=== PATIENT | male | born 1960 | race Caucasian/White ===

== ENCOUNTER 2016-10-14 17:12 | Inpatient (IN) | payer OTHER ==
[2016-10-14] MEDS ORDERED: NS 1,000 ML IV ONE ×2 (17:46→19:10)
[2016-10-14] MEDS ORDERED: ONDANSETRON 4 MG/2 ML VIAL IVP ONE ×2 (17:47→21:03)
--- NOTE | 2016-10-14 17:55 | CPEKG ---
Heart Rate: 72 RR Interval: 833 P-R Interval: 152 QRSD Interval: 104 QT Interval: 396 QTC Interval: 434 P [place]: 62 QRS [place]: 76 T Wave [place]: 69 EKG Severity - ABNORMAL ECG - EKG Impression: SINUS RHYTHM EKG Impression: PROBABLE LEFT VENTRICULAR HYPERTROPHY EKG Impression: ST ELEVATION SUGGESTS PERICARDITIS EKG Impression: With artifact due to rigors Electronically Signed By: Hao Manzanares 14-Oct-2016 20:14:57
[2016-10-14] MEDS ORDERED: LORazepam 2 MG/ML INJ IVP ONE ×2 (17:57→18:56)
[2016-10-14 17:58] LABS: % IMMATURE GRANULYOCYTES 0.6 % (0.0-1.1); ABSOLUTE IMMATURE GRANULOCYTES 0.13 10^3/uL (0.00-0.10); ADD DIFF? NO; ADD MORPH? NO; ADD SCAN? NO; ATYPICAL LYMPHOCYTE FLAG 0 (0-99); FRAGMENT RBC FLAG 0 (0-99); HEMATOCRIT 54.7 % (40.0-51.0); LEFT SHIFT FLG 0 (0-99); LIPEMIA HEMOLYSIS FLAG 90 (0-99); MEAN CELL HEMOGLOBIN 33.7 pg (27.9-34.1); MEAN CELL HEMOGLOBIN CONCENTR. 36.6 g/dL (32.4-36.7); MEAN CELL VOLUME 92.1 fL (81.5-99.8); PLATELET CLUMPS FLAG 0 (0-99); PLATELET COUNT 384 10^3/uL (150-400); RED BLOOD CELL COUNT 5.94 10^6/uL (4.40-6.38); RED CELL DISTRIBUTION WIDTH 12.1 % (11.5-15.2)
[2016-10-14] MEDS ORDERED: KETOROLAC 30 MG/1 ML SDV IVP ONE (17:58)
[2016-10-14 18:11] LABS: ALANINE AMINOTRANSFERASE 32 IU/L (21-72); ALBUMIN 5.4 g/dL (3.5-5.0); ALKALINE PHOSPHATASE 105 IU/L (38-126); ANION GAP 22 mEq/L (8-16); ASPARTATE AMINOTRANSFERASE 21 IU/L (17-59); CARBON DIOXIDE 22 mEq/l (22-31); CHLORIDE 96 mEq/L (97-110); CREATININE 0.8 mg/dL (0.7-1.3); GLOMERULAR FILTRATION RATE > 60; GLUCOSE 129 mg/dL (70-100); POTASSIUM 4.1 mEq/L (3.5-5.2); SODIUM 140 mEq/L (134-144); TOTAL PROTEIN 9.3 g/dL (6.3-8.2)
[2016-10-14 18:15] LABS: HEMATOCRIT 54.7 % (40.0-51.0)
[2016-10-14] MEDS ORDERED: METOCLOPRAMIDE 10 MG/2 ML VIAL IVP ONE (18:29)
--- NOTE | 2016-10-14 18:40 | EDPHY ---
H & P Stated Complaint: yesterday am awoke with N/V- today nausea/not feeling well / redness/SOB/wea Time Seen by Provider: 10/14/16 17:35 HPI/ROS: This patient complains of nausea and vomiting that started yesterday-Thursday. He reports mostly dry heaving he has associated shortness of breath. When the nurse asked him about coughing he stated that he did have dry cough since Thursday. He reported no cough when I asked him but he is observed to be coughing here intermittently. His reports that "he does not think well when he feels badly." He also reports fevers and chills became more prominent today shortly prior to arrival. He also reports frequent hiccups over the past 2 days. He has associated epigastric discomfort a states is mild seems to be related to coughing and dry heaving. The pain it is achy in nature and nonradiating. He notes no change in the discomfort related to position and notes no other exacerbating factors. He has had minimal p. o. intake but is tolerating fluids over the past 2 days intermittently between dry heaves. ROS: Constitutional: Fevers and chills. Mild fatigue. Integumentary: Prominent skin flushing to the thorax over the past 24 hours. "Usually he is not that red," states his . HEENT: No URI symptoms. No other complaints Pulmonary: He reports mild wheezing associated with this cough. GI: As per HPI. No hematemesis. He reports normal bowel 2-3 loose bowel movements yesterday and 1 loose bowel movement today. No bloody stools. No tarry stools. : No testicle pain, dysuria or other urinary symptoms. Endocrine: No polyuria or polydipsia. Neuro: No focal numbness tingling or weakness or headache this Musculoskeletal: Currently no back pain. He states his Lyrica significantly helps his back pain Complete review of symptoms otherwise negative Source: Patient Exam Limitations: No limitations - Personal History Current Tetanus Diphtheria and Acellular Pertussis (TDAP): Yes - Medical/Surgical History Other PMH: knee surgery / hernia repair. Chronic back pain - Family History Significant Family History: No pertinent family hx - Social History Smoking Status: Never smoked Alcohol Use: None Drug Use: Marijuana (He reports occasional marijuana use.) Additional Social History: Denies IV drug use - Physical Exam Exam: Vital signs normal except for low-grade fever on arrival General Appearance: Alert, uncomfortable due to rigors Eyes: Pupils equal and round no pallor or injection. ENT, Mouth: Mucous membranes dry. Respiratory: There are no retractions, lungs are clear to auscultation. Cardiovascular: Regular rate and rhythm. No murmur gallop or rub appreciated. He has no discomfort when leaning forward or lying flat. Gastrointestinal: No normoactive to hypoactive, soft, mild epigastric tenderness with no guarding or rebound. No organomegaly is appreciated. : No testicular tenderness Back: No CVA tenderness. No midline tenderness. Neurological: Patient is alert. He initially has difficulty answering questions /mild confusion giving GCS of 14 initially on recheck after fluids and Toradol his GCS improved to 15 no focal deficits. Skin: Warm with flushed erythematous slightly warm skin to his entire torso. This blanches easily. No petechia or purpura. Musculoskeletal: Neck is supple nontender. Extremities are symmetrical, full range of motion. Psychiatric: Patient is apprehensive initially. DIFFERENTIAL DIAGNOSIS: After history and physical exam differential diagnosis was considered for pneumonia, pericarditis, endocarditis, hepatitis, hepatic abscess, mi, diverticulitis, epidural abscess unlikely given lack of significant back pain, viral bronchitis, bacterial bronchitis, bacteremia Constitutional: Initial Vital Signs Temperature (C) 37.7 C 10/14/16 17:26 Heart Rate 75 10/14/16 17:26 Respiratory Rate 18 10/14/16 17:26 Blood Pressure 145/86 H 10/14/16 17:26 O2 Sat (%) 96 10/14/16 17:26 O2 Delivery Mode Room Air Allergies/Adverse Reactions: esomeprazole magnesium [From Nexium] Allergy (Intermediate, Verified 06/16/13 13 :05) pantoprazole sodium [From Protonix] Allergy (Intermediate, Verified 06/16/13 13: 05) Home Medications: Medication Instructions Recorded TRAZODONE HCL 03/21/09 Neurontin 06/16/13 Baclofen 10/14/16 SIMVASTATIN 10/14/16 Medical Decision Making - Diagnostics EKG Interpretation: 12 lead EKG performed shortly after arrival at 5:53 p.m. indication nausea, fatigue-rule out coronary syndrome pericarditis or other Sinus rhythm at 72 Intervals: Normal throughout [place]: Normal throughout The patient has diffuse J-point elevation inferiorly and anterolaterally suggestive of pericarditis. Overall assessment sinus rhythm with possible pericarditis, however I feel this EKG is limited because the patient had rigors when there is some artifact. 2nd EKG performed at 8:01 p.m. indication rigors resolved EKG without artifact sought Sinus rhythm at 88 Intervals: Normal throughout [place]: Normal throughout ST segments: Normal throughout Overall assessment normal EKG Imaging Results: Imaging Impressions Chest X-Ray 10/14/16 18:14 Impression: Mild perihilar bronchitis, with no focal infiltrate identified. Findings were discussed with LISE GUERIN MD at 18:45, on 10/14/2016. Abdomen CT 10/14/16 18:55 Impression: 1. Moderate thickening of the distal esophagus with adjacent fluid. Rule out distal esophagitis. 2. Fluid-filled loops of large and small bowel without significant distention. Rule out mild enteritis. 3. Prominence of the common hepatic duct with tapering of the distal common bile duct. No definite choledocholithiasis is appreciated on CT imaging. Findings discussed with Lise Guerin at 1949 hour, 10/14/2016. Verbal report on CT abdomen pelvis which also reviewed personally from Dr. Grant -small amount of fluid around the distal esophagus but no air-fluid levels. Patient has some fluid-filled loops of bowel but no significant distention. Mild dilatation of the hepatic duct to 14 mm but tapers nicely and there are no other abnormalities noted. Imaging: Discussed imaging studies w/ call center rn Radiologist, I viewed and interpreted images myself ED Course/Re-evaluation: IV normal saline bolus x1 L, repeated x1 Toradol for epigastric discomfort low-grade fever 30 mg IV and 1 mg of Ativan for anxiety and nausea Zofran for nausea without relief. Patient developed pickups that he has had frequent over the past 2 days treated with Reglan 10 mg IV and a repeat 1 mg of [place] [id number] without clearly identified source I consulted Dr. Hakeem Xavier, infectious Disease who recommends empiric treatment with ertapenem and further workup with CT abdomen pelvis with IV contrast. The patient is completing a 2nd L fluid 10 to late p.m. and lactate is repeated. Close placed to hospitalist for admission Discussion: Patient with a 2 day history of mild dry cough, epigastric discomfort significant leukocytosis to 21,000 with a left shift and with question of some intermittent mild confusion/delirium associated with fevers. In terms of SIRS or sepsis he is borderline positive with mildly elevated lactate and leukocytosis. While there is some question of mental status changes , after initial presentation he has had normal mental status here. No other evidence of end-organ dysfunction. No significant intra-abdominal pathology is identified in CT. No pneumonia is noted on chest x-ray. Possibilities include pericarditis, endocarditis, bacterial bronchitis, esophagitis, bacteremia. Based on consult with Dr. Xavier, we treated him empirically with ertapenem. He remains hemodynamically stable and with fluids and Toradol is mental status is normal while here in the clinic. He warrants admission for further treatment, observation and workup. I spoke with Dr. Loya, hospitalist accepts the patient for transfer to [facility] for admission Course continue: We ambulated the patient at 9:00 p.m. or so he felt significantly more nauseous and felt poorly. He is treated with a repeat dose of Zofran and feels more comfortable lying supine at this time. We called for EMS transport. He has a bit at [facility] - Data Points Laboratory Results: Laboratory Results 10/14/16 17:50 10/14/16 17:50 10/14/16 10/14/16 10/14/16 20:16 18:36 17:50 WBC RBC Hgb Hct MCV MCH MCHC RDW Plt Count MPV Neut % (Auto) Lymph % (Auto) Morrison % (Auto) Eos % (Auto) Baso % (Auto) Nucleat RBC Rel Count Absolute Neuts (auto) Absolute Lymphs (auto) Absolute Monos (auto) Absolute Eos (auto) Absolute Basos (auto) Absolute Nucleated RBC Immature Gran % Immature Gran # ESR VBG Lactic Acid 1.5 mmol/L D mmol/L 2.7 mmol/L H mmol/L (0.7-2.1) (0.7-2.1) Sodium Potassium Chloride Carbon Dioxide Anion Gap BUN Creatinine Estimated GFR Glucose Calcium Phosphorus Total Bilirubin AST ALT Alkaline Phosphatase Troponin I Total Protein Albumin Procalcitonin Pending 10/14/16 10/14/16 10/14/16 17:50 17:50 17:50 WBC RBC Hgb Hct 54.7 % H % (40.0-51.0) MCV MCH MCHC RDW Plt Count MPV Neut % (Auto) Lymph % (Auto) Morrison % (Auto) Eos % (Auto) Baso % (Auto) Nucleat RBC Rel Count Absolute Neuts (auto) Absolute Lymphs (auto) Absolute Monos (auto) Absolute Eos (auto) Absolute Basos (auto) Absolute Nucleated RBC Immature Gran % Immature Gran # ESR 3 MM/HR MM/HR (0-20) VBG Lactic Acid Sodium 140 mEq/L mEq/L (134-144) Potassium 4.1 mEq/L mEq/L (3.5-5.2) Chloride 96 mEq/L L mEq/L (97-110) Carbon Dioxide 22 mEq/l mEq/l (22-31) Anion Gap 22 mEq/L H mEq/L (8-16) BUN 15 mg/dL mg/dL (7-23) Creatinine 0.8 mg/dL mg/dL (0.7-1.3) Estimated GFR > 60 Glucose 129 mg/dL H mg/dL (70-100) Calcium 11.0 mg/dL H mg/dL (8.5-10.4) Phosphorus 4.1 mg/dL mg/dL (2.5-4.5) Total Bilirubin 1.0 mg/dL mg/dL (0.1-1.4) AST 21 IU/L IU/L (17-59) ALT 32 IU/L IU/L (21-72) Alkaline Phosphatase 105 IU/L IU/L (38-126) Troponin I < 0.012 ng/mL ng/mL (0-0.034) Total Protein 9.3 g/dL H g/dL (6.3-8.2) Albumin 5.4 g/dL H g/dL (3.5-5.0) Procalcitonin 10/14/16 17:50 WBC 21.11 10^3/uL H 10^3/uL (3.80-9.50) RBC 5.94 10^6/uL 10^6/uL (4.40-6.38) Hgb 20.0 g/dL H g/dL (13.7-17.5) Hct 54.7 % H % (40.0-51.0) MCV 92.1 fL fL (81.5-99.8) MCH 33.7 pg pg (27.9-34.1) MCHC 36.6 g/dL g/dL (32.4-36.7) RDW 12.1 % % (11.5-15.2) Plt Count 384 10^3/uL 10^3/uL (150-400) MPV 10.0 fL fL (8.7-11.7) Neut % (Auto) 87.0 % H % (39.3-74.2) Lymph % (Auto) 5.6 % L % (15.0-45.0) Morrison % (Auto) 6.6 % % (4.5-13.0) Eos % (Auto) 0.0 % L % (0.6-7.6) Baso % (Auto) 0.2 % L % (0.3-1.7) Nucleat RBC Rel Count 0.0 % % (0.0-0.2) Absolute Neuts (auto) 18.35 10^3/uL H 10^3/uL (1.70-6.50) Absolute Lymphs (auto) 1.19 10^3/uL 10^3/uL (1.00-3.00) Absolute Monos (auto) 1.39 10^3/uL H 10^3/uL (0.30-0.80) Absolute Eos (auto) 0.01 10^3/uL L 10^3/uL (0.03-0.40) Absolute Basos (auto) 0.04 10^3/uL 10^3/uL (0.02-0.10) Absolute Nucleated RBC 0.00 10^3/uL 10^3/uL (0-0.01) Immature Gran % 0.6 % % (0.0-1.1) Immature Gran # 0.13 10^3/uL H 10^3/uL (0.00-0.10) ESR VBG Lactic Acid Sodium Potassium Chloride Carbon Dioxide Anion Gap BUN Creatinine Estimated GFR Glucose Calcium Phosphorus Total Bilirubin AST ALT Alkaline Phosphatase Troponin I Total Protein Albumin Procalcitonin Medications Given: Discontinued Medications Acetaminophen (Tylenol 160mg/5ml Oral Liquid) 975 mg PO EDNOW ONE Stop: 10/14/16 20:36 Last Admin: 10/14/16 20:40 Dose: Not Given Acetaminophen (Tylenol) 975 mg PO EDNOW ONE Stop: 10/14/16 20:42 Last Admin: 10/14/16 20:54 Dose: 975 mg Sodium Chloride (Ns) 1,000 mls @ 0 mls/hr IV ONCE ONE; Wide Open PRN Reason: Protocol Stop: 10/14/16 17:47 Last Admin: 10/14/16 17:55 Dose: 1,000 mls Ertapenem 1 gm/ Sodium (Chloride) 100 mls @ 200 mls/hr IV EDNOW ONE PRN Reason: Protocol Stop: 10/14/16 19:24 Last Admin: 10/14/16 19:07 Dose: 100 mls Sodium Chloride (Ns) 1,000 mls @ 0 mls/hr IV ONCE ONE; Wide Open PRN Reason: Protocol Stop: 10/14/16 19:11 Last Admin: 10/14/16 19:13 Dose: 1,000 mls Ketorolac Tromethamine (Toradol) 30 mg IVP EDNOW ONE Stop: 10/14/16 17:59 Last Admin: 10/14/16 18:11 Dose: 30 mg Lorazepam (Ativan Injection) 1 mg IVP EDNOW ONE Stop: 10/14/16 17:58 Last Admin: 10/14/16 18:13 Dose: 1 mg Lorazepam (Ativan Injection) 1 mg IVP EDNOW ONE Stop: 10/14/16 18:57 Last Admin: 10/14/16 19:02 Dose: 1 mg Metoclopramide HCl (Reglan Injection) 10 mg IVP EDNOW ONE Stop: 10/14/16 18:30 Last Admin: 10/14/16 18:45 Dose: 10 mg Ondansetron HCl (Zofran) 4 mg IVP EDNOW ONE Stop: 10/14/16 17:48 Last Admin: 10/14/16 17:55 Dose: 4 mg Ondansetron HCl (Zofran) 4 mg IVP EDNOW ONE Stop: 10/14/16 21:04 Last Admin: 10/14/16 21:10 Dose: 4 mg Departure - Departure Disposition: [facility] Acute Clinical Impression: Rigors, Cough, Epigastric pain Vomiting Qualifiers: Vomiting type: unspecified Vomiting Intractability: non-intractable Nausea presence: with nausea Qualified Code(s): R11.2 - Nausea with vomiting, unspecified Leukocytosis Qualifiers: Leukocytosis type: other Qualified Code(s): D72.828 - Other elevated white blood cell count Condition: Fair Referrals: NONE *PRIMARY CARE P,. [Primary Care Provider] - As per Instructions
[2016-10-14] MEDS ORDERED: ERTAPENEM 1 GM in NS 100 ML IV ONE (18:55)
[2016-10-14] MEDS ORDERED: IOPAMIDOL (ISOVUE-300) 100 ML BTL ONE (19:02)
--- NOTE | 2016-10-14 20:09 | CPEKG ---
Heart Rate: 88 RR Interval: 682 P-R Interval: 156 QRSD Interval: 102 QT Interval: 380 QTC Interval: 460 P [place]: 43 QRS [place]: 73 T Wave [place]: 56 EKG Severity - NORMAL ECG - EKG Impression: SINUS RHYTHM Electronically Signed By: Hao Manzanares 14-Oct-2016 20:15:09
[2016-10-14] MEDS ORDERED: ACETAMINOPHEN 160 MG/5 ML UDCUP PO ONE (20:35)
[2016-10-14] MEDS ORDERED: ACETAMINOPHEN 325 MG TAB PO ONE (20:41)
[2016-10-14] MEDS ORDERED: ONDANSETRON DISINTEGRATING 4 MG TAB PO PRN (22:26)
[2016-10-14] MEDS ORDERED: ONDANSETRON 4 MG/2 ML VIAL IVP PRN (22:26)
[2016-10-14] MEDS ORDERED: ACETAMINOPHEN 325 MG TAB PO PRN (22:26)
[2016-10-14] MEDS ORDERED: BACLOFEN 10 MG TAB PO PRN (22:59)
--- NOTE | 2016-10-14 23:48 | GHP ---
[f rep st] HISTORY AND PHYSICAL DATE OF ADMISSION: 10/14/2016 CHIEF COMPLAINT: Malaise, rigors. HISTORY OF PRESENT ILLNESS: Patient is a 56-year-old male with history of fibromyalgia, GERD, hyperlipidemia, presenting [place] [facility] [place], malaise, and diarrhea starting yesterday. He has mainly been dry heaving. Did complain of epigastric pain. He had 2 episodes of diarrhea yesterday and 1 today with sweats and felt feverish. Also had a headache. He denies cough on my interview ; however, [facility] stated that he has had a dry cough since Thursday. He also reports having hiccups for 2 days. No recent antibiotics. Does report increased urinary frequency but no dysuria. REVIEW OF SYSTEMS: I completed a 10-point Review of Systems, negative except as noted in HPI. PAST MEDICAL HISTORY: Hyperlipidemia, GERD, fibromyalgia. PAST SURGICAL HISTORY: Cholecystectomy, hernia, right knee surgery. SOCIAL HISTORY: Lives in [place] with family. No alcohol, tobacco, or illicits. FAMILY HISTORY: Father with an IN and diabetes. Mother with diabetes. ALLERGIES: Nexium, Protonix. MEDICATIONS: See medication reconciliation. PHYSICAL EXAM: VITAL SIGNS: Temperature at 37.5, blood pressure 169/99, heart rate 80s, respirations 18, 93% on room air. GENERAL: Patient mildly uncomfortable, fatigued-appearing. HEENT: PERRLA. EOMI. Oropharynx clear without exudate. Dry mucous membranes. CV: Regular rate and rhythm. No murmurs, gallops, rubs. LUNGS: Clear to auscultation bilaterally. ABDOMEN: Soft, nontender, nondistended. Positive bowel sounds throughout. : No suprapubic or CVA tenderness. MUSCULOSKELETAL: 5/5 upper and lower extremity strength. No bony TTP over spine. SKIN: Warm, dry. No ulceration or rashes. NEURO: 2 through 12 intact. PSYCH: Alert and oriented x3. LABORATORY: WBC is 21, hemoglobin 20, hematocrit 54, platelets 384. Lactate 2.7, repeat 1.5. Sodium 140, potassium 4.1, chloride 96, BUN 15, creatinine 0.8 , glucose 129, calcium 11. AST/ALT 21 and 32. Total protein 9.3, albumin 5.4. Troponin less than 0.012. Procalcitonin is 0.04. Chest x-ray is personally reviewed by me. Clear lung lopez. No effusion or opacity. EKG: Normal sinus rhythm. LVH. CT abdomen: Moderate thickening of distal esophagus with adjacent fluid. Fluid -filled loops of large and small bowel without significant distention. Prominence of common hepatic duct with tapering of the distal common bile duct. No definite gallstones. ASSESSMENT AND PLAN: 1. Leukocytosis: Unclear etiology. Chest x-ray showing mild bronchitis. CT abdomen showing some thickening of the distal esophagus but no overt abscess. Mildly dilate hepatic duct, no stones. No abdominal pain on exam and normal LFTs. Check UA,respiratory, and GI PCR. He was dosed with Invanz, but will hold off until have a clear source. Other etiologies to consider were cardiac but had a negative troponin, EKG, and no chest pain. 2. Polycythemia: Suspect patient is dehydrated with decreased p.o. intake, nausea and vomiting, as all cell lines are high. We will hydrate and repeat in the morning. 3. Lactic acidosis: 2.7 initially, now resolved with IV fluids. Likely starvation ketoacidosis with decreased p.o. intake. 4. Hypercalcemia: Will hydrate and repeat in the morning. 5. Diet: Regular. 6. DVT prophylaxis: Lovenox. 7. Disposition: Patient warrants inpatient admission given acute leukocytosis , decreased p.o. intake, nausea and vomiting. Will continue IV fluids. /[id number]/MODL MTDD
[2016-10-15] MEDS: NS 1,000 ML IV SCH ×3 (00:01→23:29)
[2016-10-15 04:28] LABS: COLOR YELLOW; LEUKOCYTE ESTERASE,URINE NEGATIVE (NEGATIVE); NITRITE,URINE NEGATIVE (NEGATIVE)
[2016-10-15 04:30] LABS: MUCUS 1+ /lpf (NONE-1+); RBC,URINE 15-25 /hpf (0-3)
[2016-10-15 05:08] LABS: % IMMATURE GRANULYOCYTES 0.4 % (0.0-1.1); ABSOLUTE IMMATURE GRANULOCYTES 0.06 10^3/uL (0.00-0.10); ADD DIFF? NO; ADD MORPH? NO; ADD SCAN? NO; ATYPICAL LYMPHOCYTE FLAG 0 (0-99); FRAGMENT RBC FLAG 0 (0-99); HEMATOCRIT 43.9 % (40.0-51.0); HEMOGLOBIN 15.5 g/dL (13.7-17.5); LEFT SHIFT FLG 0 (0-99); LIPEMIA HEMOLYSIS FLAG 90 (0-99); MEAN CELL HEMOGLOBIN 33.8 pg (27.9-34.1); MEAN CELL HEMOGLOBIN CONCENTR. 35.3 g/dL (32.4-36.7); MEAN CELL VOLUME 95.6 fL (81.5-99.8); MEAN PLATELET VOLUME 10.5 fL (8.7-11.7); PLATELET CLUMPS FLAG 0 (0-99); PLATELET COUNT 279 10^3/uL (150-400); RED BLOOD CELL COUNT 4.59 10^6/uL (4.40-6.38); RED CELL DISTRIBUTION WIDTH 12.2 % (11.5-15.2)
[2016-10-15 05:27] LABS: ALANINE AMINOTRANSFERASE 24 IU/L (21-72); ALBUMIN 3.6 g/dL (3.5-5.0); ALKALINE PHOSPHATASE 63 IU/L (38-126); ANION GAP 11 mEq/L (8-16); ASPARTATE AMINOTRANSFERASE 18 IU/L (17-59); BILIRUBIN,TOTAL 0.8 mg/dL (0.1-1.4); CALCIUM 8.9 mg/dL (8.5-10.4); CARBON DIOXIDE 21 mEq/l (22-31); CHLORIDE 103 mEq/L (97-110); CREATININE 0.8 mg/dL (0.7-1.3); GLOMERULAR FILTRATION RATE > 60; GLUCOSE 96 mg/dL (70-100); POTASSIUM 3.6 mEq/L (3.5-5.2); SODIUM 135 mEq/L (134-144); TOTAL PROTEIN 5.9 g/dL (6.3-8.2)
[2016-10-15] MEDS: ENOXAPARIN 40 MG/0.4 ML SYR SC SCH (09:27)
--- NOTE | 2016-10-15 09:47 | HOSPPROG ---
Hospitalist Progress Note Assessment/Plan: 56 yo male, typically healthy, admitted for 1-2 days tactile fever, malaise, Leukocytosis, and Dehydration. Had been coughing for days leading up to this event. CXR c/w possibly bronchitis. Given Invanz and IVF. Normal PC. Afebrile here. Leukocytosis improving. #Fever #Leukocytosis #Acute Bronchitis #Diarrhea #Dehydration #Polycythemia, resolved with IVF #Hypercalcemia, resolved with IVF Plan: -Will start Levaquin 750mg IV x 5-7 days -Decrease IVF -Antiemetics PRN, has not required any since admission -Check C-Diff -Lovenox for DVT proph -Full Code -Dispo: cont inpatient. Objective: Vital Signs Temp Pulse Resp BP Pulse Ox 37.0 C 79 17 121/69 H 93 10/15/16 07:34 10/15/16 07:34 10/15/16 07:34 10/15/16 07:34 10/15/16 07:34 Microbiology 10/15/16 23:45 Respiratory Panel (PCR) - Final Nasal, Sinus - [place] Viral Transport No Organism Detected 10/15/16 04:11 Gastrointestinal Tract Panel (PCR) - Final Stool No Organism Detected Laboratory Results 10/15/16 03:43 10/15/16 03:43 10/14/16 10/15/16 10/16/16 05:59 05:59 05:59 Intake Total 3100 Output Total 400 Balance 2700 - Physical Exam Constitutional: no apparent distress Eyes: PERRL Ears, Nose, Mouth, Throat: dry mucous membranes Cardiovascular: regular rate and rhythym, no murmur, rub, or gallop, No JVD Respiratory: no respiratory distress, rhonchi Gastrointestinal: soft, non-tender abdomen, no palpable masses, No tenderness Skin: warm, normal color Neurologic: AAOx3 Psychiatric: interacting appropriately, not anxious, not encephalopathic ICD10 Worksheet Patient Problems: Problems Problem Status Onset Cough Acute Epigastric pain Acute Leukocytosis Acute Rigors Acute Vomiting Acute
[2016-10-15] MEDS ORDERED: LORazepam 2 MG/ML INJ IVP ONE (13:32)
[2016-10-15] MEDS: LORazepam 2 MG/ML INJ IVP PRN (16:36)
[2016-10-15] MEDS ORDERED: traZODone 50 MG TAB PO SCH (21:00)
[2016-10-16] MEDS: LORazepam 2 MG/ML INJ IVP PRN (00:46)
[2016-10-16 05:09] LABS: % IMMATURE GRANULYOCYTES 0.5 % (0.0-1.1); ABSOLUTE IMMATURE GRANULOCYTES 0.04 10^3/uL (0.00-0.10); ADD DIFF? NO; ADD MORPH? NO; ADD SCAN? NO; ATYPICAL LYMPHOCYTE FLAG 0 (0-99); FRAGMENT RBC FLAG 0 (0-99); HEMATOCRIT 39.6 % (40.0-51.0); HEMOGLOBIN 14.2 g/dL (13.7-17.5); LEFT SHIFT FLG 0 (0-99); LIPEMIA HEMOLYSIS FLAG 90 (0-99); MEAN CELL HEMOGLOBIN 33.6 pg (27.9-34.1); MEAN CELL HEMOGLOBIN CONCENTR. 35.9 g/dL (32.4-36.7); MEAN CELL VOLUME 93.8 fL (81.5-99.8); MEAN PLATELET VOLUME 10.5 fL (8.7-11.7); PLATELET CLUMPS FLAG 0 (0-99); PLATELET COUNT 250 10^3/uL (150-400); RED BLOOD CELL COUNT 4.22 10^6/uL (4.40-6.38); RED CELL DISTRIBUTION WIDTH 11.8 % (11.5-15.2)
[2016-10-16 05:22] LABS: ANION GAP 8 mEq/L (8-16); CALCIUM 8.3 mg/dL (8.5-10.4); CARBON DIOXIDE 22 mEq/l (22-31); CHLORIDE 105 mEq/L (97-110); CREATININE 0.7 mg/dL (0.7-1.3); GLOMERULAR FILTRATION RATE > 60; GLUCOSE 97 mg/dL (70-100); POTASSIUM 3.4 mEq/L (3.5-5.2); SODIUM 135 mEq/L (134-144)
[2016-10-16 07:59] VITALS: BP 134/79; PULSE 55; RESP 20; TEMP 98.5; O2SAT 91
[2016-10-16] MEDS: ENOXAPARIN 40 MG/0.4 ML SYR SC SCH (08:33)
--- NOTE | 2016-10-16 10:26 | PDDCSUM ---
Discharge Summary Discharge Summary: 56 yo male, typically healthy, admitted for acute bronchitis. Initially treated with Levaquin but had an allergic reaction. Changed to Rocephin. Leukocytosis has resolved. Feels much better. Afebrile. Will be discharged on Omnicef BID for 5 more days. Needs to f/u with PCP in one week. On Room air. Discharge diagnosis: #Fever #Leukocytosis #Acute Bronchitis #Diarrhea, chronic #Dehydration, resolved #Polycythemia, resolved with IVF #Hypercalcemia, resolved with IVF Exam: VSS on RA NAD RRR CTA B NO EDEMA MEDS/ALL: OMNICEF STARTED. NO CHANGES TO HOME MEDS F/U: PER ABOVE 45 MINS SPENT ON DISCHARGE INCLUDING COORDINATION WITH NURSING AND PHARMACY.
== END 2016-10-16 11:05 | disposition home or self-care (01) | DRG 203 ==
LOC: CED 17:12 → CEDHOLD 20:07 → F2W 22:17
PROVIDERS: ADMIT Student in an Organized Health Care Education/Training Program; ATTEND Internal Medicine
DX: J20.9 Acute bronchitis, unspecified (principal); T36.8X5A Adverse effect of other systemic antibiotics, initial encounter; K52.9 Noninfective gastroenteritis and colitis, unspecified; E86.0 Dehydration; D75.1 Secondary polycythemia; E83.52 Hypercalcemia
CPT/HCPCS: 71020-PO; 74177-PO; 80053-PO; 83605-PO; 84100-PO; 84484-PO; 85025-PO; 85652-PO; J0696; J1200; J1335; J1650; J1885; J1956; J2060; J2405; J2765; Q9967